=== PATIENT | male | born 1985 | race Caucasian/White ===

== ENCOUNTER 2017-07-02 04:11 | Emergency (ER) | payer SELFPAY ==
[2017-07-02 04:21] VITALS: O2SAT 97
--- NOTE | 2017-07-02 04:50 | C.PDOC ---
History Of Present Illness 31 year old male presents to the emergency department requesting detox from heroin. Patient reports that he last used heroin a few hours prior to arrival. Time Seen by Provider: 07/02/17 04:49 Chief Complaint (Nursing): Substance Abuse History Per: Patient History/Exam Limitations: no limitations Onset/Duration Of Symptoms: Hrs Current Symptoms Are (Timing): Still Present Modifying Factor(s): Other (heroin) Severity: Moderate Pain Scale Rating Of: 4 Associated Symptoms: denies: Anger, Anxiety Involuntary Hold By: None Recent travel outside of the [place]: No Additional History Per: Patient Past Medical History Reviewed: Historical Data, Nursing Documentation, Vital Signs Vital Signs: Last Vital Signs Temp 98.1 F 07/02/17 04:43 Pulse 79 07/02/17 04:43 Resp 18 07/02/17 04:43 BP 124/68 07/02/17 04:43 Pulse Ox 97 07/02/17 05:01 - Medical History PMH: No Chronic Diseases, Hepatitis (Hepatitis C- Never received treatment) Denies: Diabetes, HIV, HTN, Chronic Kidney Disease, Seizures, Sexually Transmitted Disease Surgical History: No Surg Hx - [facility] Procedures DETOXIFICATION SERVICES FOR SUBSTANCE ABUSE TREATMENT (12/02/15) GROUP MACHINE FEATHEREDGER AND REDUCER FOR SUBSTANCE ABUSE TREATMENT, PSYCHOEDUCATION (12/02/15) Family History: States: No Known Family Hx - Social History Hx Alcohol Use: Yes Hx Substance Use: Yes - Immunization History Hx Tetanus Toxoid Vaccination: No Hx Influenza Vaccination: No Hx Pneumococcal Vaccination: No Review Of Systems Constitutional: Negative for: Fever Cardiovascular: Negative for: Chest Pain Respiratory: Negative for: Shortness of Breath Neurological: Negative for: Altered Mental Status (under the influence of heroin ) Psych: Negative for: Anxiety Physical Exam - Physical Exam Appears: Non-toxic, No Acute Distress Extremity: Normal ROM Neurological/Psych: Oriented x3 Gait: Steady ED Course And Treatment O2 Sat by Pulse Oximetry: 97 (RA) Pulse Ox Interpretation: Normal Progress Note: Patient was informed that there are currently no beds available for detox. Patient was instructed by bulb farmworker regarding other options for him, but the patient refused to be examined and wants to leave. Disposition Counseled Patient/Family Regarding: Studies Performed, Diagnosis, Need For Followup - Disposition Referrals: [facility] [Outside] Disposition: HOME/ ROUTINE Disposition Time: 04:49 Condition: FAIR Instructions: Drug Abuse and Drug Addiction (DC) Forms: [employer] [facility] (Turkish) - Clinical Impression Clinical Impression: Heroin abuse - Scribe Statement The provider has reviewed the documentation as recorded by the Scribe (Morris Lopez) Provider Attestation: All medical record entries made by the Scribe were at my direction and personally dictated by me. I have reviewed the chart and agree that the record accurately reflects my personal performance of the history, physical exam, medical decision making, and the department course for this patient. I have also personally directed, reviewed, and agree with the discharge instructions and disposition.
[2017-07-02 05:25] VITALS: BP 124/68; PULSE 79; RESP 18; TEMP 98.1
== END 2017-07-02 05:23 | disposition home or self-care (01) ==
LOC: C.ER 04:11
DX: F11.10 Opioid abuse, uncomplicated (principal)

== ENCOUNTER 2017-07-19 06:57 | Inpatient (IN) | payer SELFPAY ==
--- NOTE | 2017-07-19 08:11 | C.PDOC ---
History Of Present Illness 31 y/o male requesting detox from heroin. last used this morning; usual is 10 bags per day iv. denies any physical complaints. Time Seen by Provider: 07/19/17 07:26 Chief Complaint (Nursing): Substance Abuse History Per: Patient History/Exam Limitations: no limitations Suicide/Self Injury Attempted (Context): None Past Medical History Reviewed: Historical Data, Nursing Documentation, Vital Signs Vital Signs: Last Vital Signs Temp 98.7 F 07/19/17 07:03 Pulse 87 07/19/17 07:03 Resp 14 07/19/17 07:03 BP 126/76 07/19/17 07:03 Pulse Ox 98 07/19/17 10:06 - Medical History PMH: Hepatitis (Hepatitis C- Never received treatment) Denies: Diabetes, HIV, HTN, Chronic Kidney Disease, Seizures, Sexually Transmitted Disease - [facility] Procedures DETOXIFICATION SERVICES FOR SUBSTANCE ABUSE TREATMENT (12/02/15) GROUP WARDROBE ASSISTANT FOR SUBSTANCE ABUSE TREATMENT, PSYCHOEDUCATION (12/02/15) Family History: States: Unknown Family Hx - Social History Hx Tobacco Use: Yes Hx Alcohol Use: Yes Hx Substance Use: Yes - Immunization History Hx Tetanus Toxoid Vaccination: No Hx Influenza Vaccination: No Hx Pneumococcal Vaccination: No Review Of Systems Constitutional: Negative for: Fever, Chills Cardiovascular: Negative for: Chest Pain Gastrointestinal: Negative for: Nausea, Vomiting, Abdominal Pain Skin: Negative for: Rash Neurological: Negative for: Weakness, Numbness Physical Exam - Physical Exam Appears: Non-toxic, No Acute Distress Skin: Warm, Dry Head: Atraumatic, Normacephalic Neck: Supple Cardiovascular: Rhythm Regular, No Murmur Respiratory: No Decreased Breath Sounds, No Wheezing Gastrointestinal/Abdominal: Bowel Sounds, Soft, No Tenderness Extremity: Normal ROM, No Tenderness, No Pedal Edema ED Course And Treatment - Laboratory Results Result Diagrams: 07/19/17 08:21 07/19/17 08:21 O2 Sat by Pulse Oximetry: 98 Medical Decision Making Medical Decision Makin31 y/o male using heroin iv for detox; med clearance; per crisis, bed should be available around 11 am 1005 pt is medically cleared for detox admission, await crisis evaluation. Disposition Discussed With : Janee Burns Doctor Will See Patient In The: Hospital - Disposition Disposition: HOSPITALIZED Disposition Time: 12:31 Condition: STABLE Forms: [employer] (Persian) - Clinical Impression Clinical Impression: Opioid use disorder, severe, dependence
[2017-07-19 08:26] LABS: BASO # 0.1 K/uL (0.0-0.2); EOS # 0.2 K/uL (0.0-0.7); EOS % 2.1 % (0.0-4.0); HEMOGLOBIN 13.1 g/dL (12.0-18.0); LYMPH # 2.3 K/uL (1.0-4.3); LYMPH % 29.3 % (20.0-40.0); MEAN CELL VOLUME 84.8 fL (80.0-94.0); MEAN CORPUSCULAR HEMOGLOBIN 28.9 pg (27.0-31.0); MEAN CORPUSCULAR HGB CONC 34.1 g/dL (33.0-37.0); MEAN PLATELET VOLUME 7.8 fL (7.2-11.7); MONO # 0.9 K/uL (0.0-0.8); MONO % 11.5 % (0.0-10.0); NEUT # 4.4 K/uL (1.8-7.0); NEUT % 56.1 % (50.0-75.0); RBC 4.53 Mil/uL (4.40-5.90); RED CELL DISTRIBUTION WIDTH 13.8 % (11.5-14.5); WHITE BLOOD COUNT 7.9 K/uL (4.8-10.8)
[2017-07-19 08:48] LABS: ALB/GLOB RATIO 1.1 (1.0-2.1); ALBUMIN 4.1 g/dL (3.5-5.0); ALT/SGPT 15 U/L (21-72); AST/SGOT 47 U/L (17-59); BLOOD UREA NITROGEN 15 mg/dL (9-20); CALCIUM 9.2 mg/dl (8.6-10.4); GFR AFRICAN-AMERICAN > 60; GFR NON-AFRICAN AMERICAN > 60
[2017-07-19 09:43] LABS: URINE BILIRUBIN NEGATIVE (NEGATIVE); URINE BLOOD NEGATIVE (NEGATIVE); URINE CLARITY Hazy (Clear); URINE COLOR Amber (YELLOW); URINE GLUCOSE (UA) NORMAL (Normal); URINE LEUKOCYTE ESTERASE NEG Leu/uL (Negative); URINE PROTEIN NEGATIVE (NEGATIVE)
[2017-07-19 10:02] LABS: BARBITURATES, UR NEGATIVE (NEGATIVE); BENZODIAZEPINES, UR NEGATIVE (NEGATIVE); PHENCYCLIDINE, UR NEGATIVE (NEGATIVE)
[2017-07-19 10:04] LABS: OPIATES, UR POSITIVE (NEGATIVE)
--- NOTE | 2017-07-19 13:48 | PCM.BM ---
<Alva Brizuela - Last Filed: 07/19/17 13:45> Treatment assets and liabiliti Patient Assests: adapts well, cooperative, ADL independent, negotiates basic needs Patient Liabilities: financial problems, poor support system, relationship conflicts, substance abuse, other - Milieu Protocol Maintain good personal hygiene: every shift Encourage regular showers, every shift Remind patient to perform daily oral care, every shift Assist patient to perform ADL's Maintain personal safety: every shift Educate patient to report safety concerns to staff, every shift Monitor environment for contraband/sharps Medication safety: Monitor for expected outcome, potential side effects: every shift, Assess barriers to learning: every shift, Assess readiness for medication education: every shift <Nadia Carrillo - Last Filed: 07/22/17 23:08> - Diagnosis (1) Opioid use disorder, severe, dependence Status: Acute Interventions: 07/21/17 08:07 * Assess 7x/week regarding severity of withdrawal * Educate regarding risks, benefits, side effects and alternatives of medications * Use Motivational Interviewing for abstinence * Use CBT for relapse prevention * Medication management for withdrawal symptoms * Encourage medication assisted treatment *
--- NOTE | 2017-07-20 10:17 | PCM.PSYCH ---
Initial Psychiatric Evaluation - Initial Psychiatric Evaluation Type of Admission: Voluntary Legal Status: Capacity History of Present Illness and Precipitating Events: Pt is a 31 years old CM currently homeless, with history of opioid use disorder , cocaine use disorder and alcohol use disorder and medical history of hep C came to the [facility] to get help in detox. Pt reports a long history of abusing drugs. As per the patient, he started drinking at age of 13. He started smoking cocaine at age of 16. He started heroin at age of 17. He uses 5-7 bags daily. Currently he is injecting cocaine and heroin. Patient reported history of 2 previous overdoses and 2 previous narcan reversals. Patient unable to recall the specific dates for these events. Patient reported 90 days and longest period of sobriety. Patient reported being incarcerated at this time. He drinks alcohol once. last drink was one month ago. Patient reported previous inpatient admissions to this facility for detox. Patient denied any history of rehabilitation admissions. However, seeking placement to rehab at discharge. Patient denied depressive symptoms. Patient denied auditory, visual, olfactory, gustatory and tactile hallucinations. Patient denied suicidal ideations, attempts, gestures, plan or intent at the time of interview. Patient denied homicidal ideations, attempts, gestures, plan or intent at the time of interview. Pt reports withdrawal symptoms including nausea, sweating, headaches and cramps. Reports irritable mood but denies any feelings of hopelessness and helplessness, and denies any suicidal ideation and homicidal ideation. Pt also denies any manic or psychotic symptoms. Pt also denies any other substance abuse. Medical history Hep C Current Medications: Active Medications Generic Name Dose Route Start Last Admin Trade Name Freq PRN Reason Stop Dose Admin Clonidine HCl 0.1 mg 07/19/17 14:04 Catapres PO Q8 PRN COWS Score More or Equal to 5 Ibuprofen 600 mg 07/19/17 14:04 Motrin Tab PO TID PRN Pain, moderate (4-7) Loperamide HCl 2 mg 07/19/17 14:04 Imodium PO Q8 PRN Diarrhea Ondansetron HCl 4 mg 07/19/17 13:57 Zofran Tab PO Q8 PRN Nausea/Vomiting Past Psychiatric History - Past Psychiatric History Previous Treatment History: Inpatient At what hospital: [facility] Duration: few days in 11/2016 Nature of Treatment: detox History of Abuse: denied History of ETOH/Drug Use: please see HPI History of Family Illness: denied Pertinent Medical Hx (Current Medical&Sleep Prob, Allergies): Allergies Allergy/AdvReac Type Severity Reaction Status Date / Time No Known Allergies Allergy Verified 07/19/17 07:06 Review of Systems - Review of Systems All systems: reviewed and no additional remarkable complaints except (please see HPI) Mental Status Examination - Personal Presentation Personal Presentation: Looks stated age, Dressed appropriate to season - Affect Affect: Constricted - Motor Activity Motor Activity: Calm - Reliability in Providing Information Reliability in Providing Information: Fair - Mood Mood: Depressed, Anxious - Formal Thought Process Formal Thought Process: No Impairment - Hallucinations/Delusions Hallucinations: Other (denied) Delusions: Other (denied) - Obsessions/Compulsions Obsessions: None Compulsions: None - Cognitive Functions Orientation: Person, Place, Situation, Time Sensorium: Alert Attention/Concentration: Attentive Abstract Thinking: [place] Estimate of Intelligence: Average Judgement: Intact, as evidence by: Good judgement, Intact, as evidence by: Insight regarding need for hospitalization Memory: Recent intact, as evidence by: Ability to recall events of the day - Risk Risk: Withdrawal - Strength & Assets Inventory Strength & Assets Inventory: Intelligence, Cooperative - Limitations Limitations: Other (chronic poly substance abuse) DSM 5 DX - DSM 5 DSM 5 Diagnosis: Opioid dependence use severe, Opioid withdrawal symptoms - Recommended/Plan of Treatment Treatment Recommendations and Plan of Treatment: Methadone detox Gabapentin for augmentation As needed meds and vitamins Attend groups and activities AL for abstinence and CBT for relapse prevention Support and psychoeducation Consider and encourage MAT Refer to after care Projected ELOS: 5 days Prognosis: good Discharge Plan and Discharge Criteria: please see after care plan - Smoking Cessation Smoking Cessation Initiated: Yes
[2017-07-21 06:05] VITALS: BP 126/74; PULSE 62; RESP 20; TEMP 98.6; O2SAT 98
--- NOTE | 2017-07-21 08:36 | PCM.PYCHDC ---
Discharge Summary - Discharge Note Reason for Hospitalization: Opioid detox Psychiatric History (includes Medical, Family, Personal Hx): detox Consultations:: List each consultation separately and include: 1. Reason for request. 2. Findings. 3. Follow-up Summary of Hospital Course include:: 1. Description of specific treatment plan utilized for patients during their course of treatmen. 2. Summarize the time- course for resolution of acute symptoms and/or regressed behaviors. 3. Describe issues identified and worked on during hospitalization. 4. Describe medication utilized. 5. Describe medical problems identified and treated. 6. Reassessment of suicide risk Summary of Hospital Course: The pt came in for opioid detox, started on treatment but this morning he suddenly asked to be d/c'ed AMA Risks of leaving early, including relapse, OD and even discussed. He understood but still left AMA - Final Diagnosis (DSM 5) Condition upon Discharge: GOOD DSM 5: Opioid dependence use severe, Opioid withdrawal symptoms Disposition: AGAINST MEDICAL ADVICE Follow-up Treatment Plan: Return to ER if needed Consider methadone maintenance
== END 2017-07-21 08:30 | disposition left against medical advice (07) | DRG 894 ==
LOC: C.ER 06:57 → C.7D 12:30
PROVIDERS: ADMIT Psychiatry & Neurology Psychiatry; ATTEND Psychiatry & Neurology Psychiatry
PROC: HZ2ZZZZ Detoxification Services for Substance Abuse Treatment (ICD-10-PCS; principal; 2017-07-19)
DX: F11.23 Opioid dependence with withdrawal (principal); Z59.0 Homelessness; Z87.891 Personal history of nicotine dependence; F14.10 Cocaine abuse, uncomplicated; F12.10 Cannabis abuse, uncomplicated

== ENCOUNTER 2017-09-10 05:32 | Inpatient (IN) | payer SELFPAY ==
--- NOTE | 2017-09-10 05:49 | C.PDOC ---
History Of Present Illness 32 year old male presents to the ED requesting detox for heroin abuse. Patient initially wanted detox, upon being told no beds were available patient now states he wants to kill himself. Patient does not have an specific plan. Patient denies HI, hallucinations, CP, SOB. Time Seen by Provider: 09/10/17 05:49 Chief Complaint (Nursing): Substance Abuse History Per: Patient History/Exam Limitations: no limitations Onset/Duration Of Symptoms: Hrs Current Symptoms Are (Timing): Still Present Suicide/Self Injury Attempted (Context): Other Modifying Factor(s): Other (Heroin) Associated Symptoms: Suicidal Thoughts. denies: Suicidal Plan Recent travel outside of the [place]: No Additional History Per: Patient Past Medical History Reviewed: Historical Data, Nursing Documentation, Vital Signs Vital Signs: Last Vital Signs Temp 98.5 F 09/10/17 05:35 Pulse 84 09/10/17 05:35 Resp 20 09/10/17 05:35 BP 117/77 09/10/17 05:35 Pulse Ox 95 09/10/17 05:35 - Medical History PMH: Hepatitis (Hepatitis C- Never received treatment) Denies: Diabetes, HIV, HTN, Chronic Kidney Disease, Seizures, Sexually Transmitted Disease Surgical History: No Surg Hx - [facility] Procedures DETOXIFICATION SERVICES FOR SUBSTANCE ABUSE TREATMENT (07/19/17) GROUP ACCOUNTING TECHNICIAN FOR SUBSTANCE ABUSE TREATMENT, PSYCHOEDUCATION (12/02/15) Family History: States: Unknown Family Hx - Social History Hx Tobacco Use: Yes Hx Alcohol Use: Yes Hx Substance Use: Yes - Immunization History Hx Tetanus Toxoid Vaccination: No Hx Influenza Vaccination: No Hx Pneumococcal Vaccination: No Review Of Systems Constitutional: Negative for: Fever, Chills Cardiovascular: Negative for: Chest Pain Respiratory: Negative for: Shortness of Breath Gastrointestinal: Negative for: Nausea, Vomiting Skin: Negative for: Rash Psych: Positive for: Suicidal ideation. Negative for: Depression Physical Exam - Physical Exam Appears: Non-toxic, No Acute Distress Skin: Warm, Dry Head: Normacephalic Eye(s): bilateral: Normal Inspection Neck: Supple Chest: Symmetrical Cardiovascular: Rhythm Regular Respiratory: No Rales, No Rhonchi, No Wheezing Gastrointestinal/Abdominal: Soft, No Tenderness, No Guarding, No Rebound Extremity: No Tenderness, No Swelling Extremity: Bilateral: Atraumatic, Normal Color And Temperature, Normal ROM Neurological/Psych: Oriented x3, Normal Speech Gait: Steady ED Course And Treatment Pulse Ox Interpretation: Normal Progress Note: Plan: - crisis evaluation Disposition Counseled Patient/Family Regarding: Studies Performed, Diagnosis - Disposition Disposition Time: 05:49 Condition: FAIR Forms: [facility] (Dutch) - Clinical Impression Clinical Impression: Drug abuse, Depression - Scribe Statement The provider has reviewed the documentation as recorded by the Scribe Amrit Rubio All medical record entries made by the Scribe were at my direction and personally dictated by me. I have reviewed the chart and agree that the record accurately reflects my personal performance of the history, physical exam, medical decision making, and the department course for this patient. I have also personally directed, reviewed, and agree with the discharge instructions and disposition. Physician Patient Turnover Patient Signed Over To: Omayra Vogt Handoff Comments: pending crisis eval and dispostion
[2017-09-10 06:24] LABS: SQUAMOUS EPITHIAL < 1 /hpf (0-5); URINE BILIRUBIN 1+ (NEGATIVE); URINE BLOOD NEGATIVE (NEGATIVE); URINE CLARITY Hazy (Clear); URINE COLOR Amber (YELLOW); URINE GLUCOSE (UA) NORMAL (Normal); URINE HYALINE CAST 0-2 /lpf (0-2); URINE LEUKOCYTE ESTERASE NEG Leu/uL (Negative); URINE PROTEIN 1+ mg/dL (NEGATIVE)
[2017-09-10 06:36] LABS: BARBITURATES, UR NEGATIVE (NEGATIVE); BENZODIAZEPINES, UR NEGATIVE (NEGATIVE); PHENCYCLIDINE, UR NEGATIVE (NEGATIVE)
[2017-09-10 06:37] LABS: BASO # 0.1 K/uL (0.0-0.2); BASO % 0.9 % (0.0-2.0); EOS # 0.2 K/uL (0.0-0.7); EOS % 1.8 % (0.0-4.0); HEMOGLOBIN 14.8 g/dL (12.0-18.0); LYMPH # 3.4 K/uL (1.0-4.3); LYMPH % 36.5 % (20.0-40.0); MEAN CELL VOLUME 83.6 fL (80.0-94.0); MEAN CORPUSCULAR HEMOGLOBIN 28.4 pg (27.0-31.0); MEAN PLATELET VOLUME 7.8 fL (7.2-11.7); MONO % 10.5 % (0.0-10.0); NEUT # 4.7 K/uL (1.8-7.0); NEUT % 50.3 % (50.0-75.0); NRBC % 0.1 % (0.0-2.0); RBC 5.22 Mil/uL (4.40-5.90); RED CELL DISTRIBUTION WIDTH 13.8 % (11.5-14.5); WHITE BLOOD COUNT 9.4 K/uL (4.8-10.8)
[2017-09-10 06:49] LABS: ALB/GLOB RATIO 1.2 (1.0-2.1); ALT/SGPT 54 U/L (21-72); AST/SGOT 42 U/L (17-59); BLOOD UREA NITROGEN 15 mg/dL (9-20); CALCIUM 10.3 mg/dl (8.6-10.4); GFR AFRICAN-AMERICAN > 60; GFR NON-AFRICAN AMERICAN > 60
[2017-09-10 06:52] LABS: OPIATES, UR POSITIVE (NEGATIVE)
[2017-09-10 09:34] VITALS: RESP 20; TEMP 99.1; O2SAT 98
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
[2017-09-10] MEDS ORDERED: Aluminum Hydroxide/Magnesium Hydroxide Susp (30 mL) PO PRN (12:00)
--- NOTE | 2017-09-10 15:25 | PCM.BM ---
Treatment Plan Problems - Problems identified on initial assessmt Substance Abuse Date Initiated: 09/10/17 Time Initiated: 15:23 Assessment reference: NA Status: Active Depression Date Initiated: 09/10/17 Time Initiated: 15:24 Assessment reference: NA Status: Active Treatment assets and liabiliti Patient Assests: adapts well, cooperative, ADL independent, negotiates basic needs Patient Liabilities: substance abuse - Milieu Protocol Maintain good personal hygiene: daily Encourage regular showers, daily Remind patient to perform daily oral care, daily Assist patient to perform ADL's Maintain personal safety: daily Educate patient to report safety concerns to staff, daily Monitor environment for contraband/sharps Medication safety: Monitor for expected outcome, potential side effects: daily, Assess barriers to learning: daily, Assess readiness for medication education: daily
[2017-09-11 06:23] VITALS: BP 136/83; PULSE 59
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
== END 2017-09-11 12:00 | disposition left against medical advice (07) | DRG 885 ==
LOC: C.ER 05:32 → C.5E 08:56
PROVIDERS: ADMIT Psychiatry & Neurology Psychiatry; ATTEND Psychiatry & Neurology Psychiatry
PROC: GZ3ZZZZ Medication Management (ICD-10-PCS; principal; 2017-09-10)
PROC: GZHZZZZ Group Psychotherapy (ICD-10-PCS; 2017-09-10)
PROC: GZ56ZZZ Individual Psychotherapy, Supportive (ICD-10-PCS; 2017-09-10)
PROC: HZ2ZZZZ Detoxification Services for Substance Abuse Treatment (ICD-10-PCS; 2017-09-10)
PROC: HZ59ZZZ Individual Psychotherapy for Substance Abuse Treatment, Supportive (ICD-10-PCS; 2017-09-10)
DX: F32.1 Major depressive disorder, single episode, moderate (principal); F11.23 Opioid dependence with withdrawal; R45.851 Suicidal ideations; F12.10 Cannabis abuse, uncomplicated; F14.10 Cocaine abuse, uncomplicated; F17.210 Nicotine dependence, cigarettes, uncomplicated; Z91.5 Personal history of self-harm

== ENCOUNTER 2018-02-23 04:43 | Emergency (ER) | payer MEDICAID, OTHER ==
[2018-02-23 05:03] VITALS: O2SAT 99
--- NOTE | 2018-02-23 05:22 | C.PDOC ---
History Of Present Illness 32 year old male presents to the ED requesting detox for heroin and alcohol abuse. 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 Patient denies SI/HI, hallucinations, CP, SOB, injury, fall, trauma. Chief Complaint (Nursing): Psychiatric Evaluation History Per: Patient History/Exam Limitations: intoxication Onset/Duration Of Symptoms: Hrs Current Symptoms Are (Timing): Still Present Suicide/Self Injury Attempted (Context): None Modifying Factor(s): Alcohol, Narcotics Associated Symptoms: denies: Depression, Suicidal Thoughts, Suicidal Plan Additional History Per: Patient Past Medical History Reviewed: Historical Data, Nursing Documentation, Vital Signs Vital Signs: Last Vital Signs Temp 98.4 F 02/23/18 04:58 Pulse 85 02/23/18 04:58 Resp 18 02/23/18 04:58 BP 122/67 02/23/18 04:58 Pulse Ox 99 02/23/18 04:58 - Medical History PMH: Hepatitis (Hepatitis C- Never received treatment) Denies: Diabetes, HIV, HTN, Chronic Kidney Disease, Seizures, Sexually Transmitted Disease Surgical History: No Surg Hx - [facility] Procedures DETOXIFICATION SERVICES FOR SUBSTANCE ABUSE TREATMENT (09/10/17) GROUP INSPECTOR FILTER TIP FOR SUBSTANCE ABUSE TREATMENT, PSYCHOEDUCATION (12/02/15) GROUP PSYCHOTHERAPY (09/10/17) INDIV PSYCHOTHERAPY FOR SUBSTANCE ABUSE TREATMENT, SUPPORT (09/10/17) INDIVIDUAL PSYCHOTHERAPY, SUPPORTIVE (09/10/17) MEDICATION MANAGEMENT (09/10/17) Family History: States: Unknown Family Hx - Social History Hx Tobacco Use: Yes Hx Alcohol Use: No Hx Substance Use: Yes - Immunization History Hx Tetanus Toxoid Vaccination: No Hx Influenza Vaccination: No Hx Pneumococcal Vaccination: No Review Of Systems Constitutional: Negative for: Fever, Chills Cardiovascular: Negative for: Chest Pain Respiratory: Negative for: Cough, Shortness of Breath Gastrointestinal: Negative for: Nausea, Vomiting, Abdominal Pain Skin: Negative for: Rash Psych: Negative for: Depression, Suicidal ideation Physical Exam - Physical Exam Appears: Non-toxic, No Acute Distress Skin: Normal Color, Warm, Dry Head: Atraumatic, Normacephalic Eye(s): bilateral: Normal Inspection Neck: Normal ROM, Supple, Other (puncture wound right sided neck area) Chest: Symmetrical Cardiovascular: Rhythm Regular Respiratory: Normal Breath Sounds, No Rales, No Rhonchi, No Wheezing Gastrointestinal/Abdominal: Soft, No Tenderness, No Guarding, No Rebound Extremity: Normal ROM, No Tenderness, No Swelling Neurological/Psych: Oriented x3, Normal Speech, Normal Cognition Gait: Steady ED Course And Treatment O2 Sat by Pulse Oximetry: 99 (ON RA) Pulse Ox Interpretation: Normal Medical Decision Making Medical Decision Making: Plan: * Labs * UA * Crisis eval Disposition - Disposition Referrals: Non [facility] Provider, [Primary Care Provider] - Disposition Time: 07:00 Condition: STABLE Forms: [employer] (Tunisian) - Clinical Impression Clinical Impression: Opiate abuse, continuous, Cocaine abuse - Scribe Statement The provider has reviewed the documentation as recorded by the Scribe Amrit Rubio All medical record entries made by the Scribe were at my direction and personally dictated by me. I have reviewed the chart and agree that the record accurately reflects my personal performance of the history, physical exam, medical decision making, and the department course for this patient. I have also personally directed, reviewed, and agree with the discharge instructions and disposition.
[2018-02-23 06:26] VITALS: BP 120/63; PULSE 74; RESP 20; TEMP 97.1
== END 2018-02-23 06:25 | disposition home or self-care (01) ==
LOC: C.ER 04:43 → SUPCPDRO 04:43 → C.ER 06:25
DX: F11.10 Opioid abuse, uncomplicated (principal); F14.10 Cocaine abuse, uncomplicated